=== PATIENT | male | born 1955 | race Two or more races ===

== ENCOUNTER 2023-02-08 04:08 | Inpatient (IN) | payer MEDICARE, OTHER ==
[~2023-02-08] VITALS: Ht 175.3 cm; Wt 99.0 kg
[2023-02-08 04:40] LABS: Basophils # (auto) 0.1 10 ^3/uL (0-0.2); Basophils % (auto) 1.1 % (0.0-2.0); Eosinophils # (auto) 0 10 ^3/uL (0-0.8); Eosinophils % (auto) 0.6 % (0.0-7.0); Hematocrit 46.2 % (41.0-53.0); Hemoglobin 15.6 g/dL (13.5-17.5); Lymphocytes # (auto) 1.2 10 ^3/uL (0.4-5.4); Lymphocytes % (auto) 16.1 % (10.0-50.0); Mean Corpuscular Hemoglobin 29.5 pg (28.0-32.0); Mean Corpuscular Hgb Conc. 33.8 g/dL (32.0-36.0); Mean Corpuscular Volume 87.2 fL (80.0-100.0); Monocytes # (auto) 0.2 10 ^3/uL (0-1.3); Monocytes % (auto) 3.1 % (0.0-12.0); Neutrophils # (auto) 5.9 10 ^3/uL (1.6-8.6); Neutrophils % (auto) 79.1 % (37.0-80.0); Nucleated Red Blood Cells % 0.1 %; Red Cell Distribution Width 13.7 % (11.8-14.3); White Blood Cell 7.5 10^3/uL (4.4-10.8)
[2023-02-08 04:59] LABS: Albumin 3.6 g/dL (3.4-5.0); Magnesium 2.7 mg/dL (1.6-2.6); Potassium 4.2 mmol/L (3.5-5.1)
[2023-02-08 05:03] LABS: BUN/Creatinine Ratio 13.9 (10.0-20.0); Bilirubin, Total 0.6 mg/dL (0.2-1.0); Calcium 8.7 mg/dL (8.5-10.1)
[2023-02-08 07:20] VITALS: PULSE 70; RESP 14; O2SAT 98
[2023-02-08] MEDS ORDERED: CLOPIDOGREL BISULFATE 75 MG TAB PO ONE (08:45)
[2023-02-08] MEDS ORDERED: ACETAMINOPHEN 325 MG TAB PO PRN (10:45)
[2023-02-08] MEDS ORDERED: NITROGLYCERIN 0.4 MG SL TAB SL PRN (10:45)
[2023-02-08] MEDS ORDERED: MORPHINE SULFATE INJ 2 MG/ml SYRG IV PRN (10:45)
[2023-02-08] MEDS ORDERED: DEXTROSE (50%) 50ML SYRG IV PRN (11:00)
[2023-02-08] MEDS ORDERED: ONDANSETRON HCL 4 MG/2 ML VIAL IV ONE (11:15)
[2023-02-08] MEDS: InsuLIN REG 1unit/0.01ml Soln (100units/ml) SC SCH ×3 (12:06→22:00)
[2023-02-08] MEDS: ACCU-CHEK COMFORT CURVE STRIP VI SCH ×3 (12:06→22:14)
[2023-02-08 12:47] LABS: INR 1.1 (0.9-1.15); Partial Thromboplastin Time 27.4 SEC (24.5-34.5)
[2023-02-08] MEDS: TAMSULOSIN HYDROCHLORIDE 0.4 MG CAP PO SCH (17:31)
[2023-02-08 17:53] VITALS: PULSE 68; RESP 18; O2SAT 97
[2023-02-08] MEDS: CLOPIDOGREL BISULFATE 75 MG TAB PO SCH (19:15)
[2023-02-08 19:42] VITALS: PULSE 78; RESP 19; O2SAT 94
[2023-02-08 20:00] LABS: Cholesterol 197 mg/dL (< 200)
[2023-02-08 20:03] LABS: HDL Cholesterol 70 mg/dL (40-59); LDL Cholesterol 118 mg/dL (< 100); Triglycerides 88 mg/dL (< 150)
[2023-02-08] MEDS: ATORVASTATIN 20 MG TAB PO SCH (22:21)
[2023-02-08] MEDS: CARVEDILOL 3.125 MG TAB PO SCH (22:22)
[2023-02-09] VITALS (17 sets, daily range): BP systolic 139–159; BP diastolic 69–85; PULSE 58–77; RESP 11–23; TEMP 97.7–100; O2SAT 91–96
[2023-02-09] MEDS: MECLIZINE HCL 25 MG TAB PO PRN ×2 (01:26→17:09)
[2023-02-09 04:57] LABS: Basophils # (auto) 0.1 10 ^3/uL (0-0.2); Basophils % (auto) 0.6 % (0.0-2.0); Eosinophils # (auto) 0.2 10 ^3/uL (0-0.8); Eosinophils % (auto) 1.6 % (0.0-7.0); Hematocrit 44.1 % (41.0-53.0); Hemoglobin 14.7 g/dL (13.5-17.5); Lymphocytes # (auto) 1.9 10 ^3/uL (0.4-5.4); Lymphocytes % (auto) 20.7 % (10.0-50.0); Mean Corpuscular Hemoglobin 29.1 pg (28.0-32.0); Mean Corpuscular Hgb Conc. 33.2 g/dL (32.0-36.0); Mean Corpuscular Volume 87.5 fL (80.0-100.0); Monocytes # (auto) 0.8 10 ^3/uL (0-1.3); Neutrophils # (auto) 6.4 10 ^3/uL (1.6-8.6); Neutrophils % (auto) 69.1 % (37.0-80.0); Red Blood Cells 5.04 10^6/uL (4.5-5.90); Red Cell Distribution Width 13.8 % (11.8-14.3); White Blood Cell 9.3 10^3/uL (4.4-10.8)
[2023-02-09 05:16] LABS: Calcium 8.4 mg/dL (8.5-10.1)
[2023-02-09 05:21] LABS: BUN/Creatinine Ratio 14.5 (10.0-20.0); Bilirubin, Total 0.6 mg/dL (0.2-1.0); Total Protein 6.3 g/dL (6.4-8.2)
[2023-02-09] MEDS: ACCU-CHEK COMFORT CURVE STRIP VI SCH ×4 (07:00→21:12)
[2023-02-09] MEDS: InsuLIN REG 1unit/0.01ml Soln (100units/ml) SC SCH ×4 (07:00→21:22)
[2023-02-09] MEDS ORDERED: CLOPIDOGREL BISULFATE 75 MG TAB PO SCH (10:00)
[2023-02-09] MEDS: FAMOTIDINE 20 MG TAB PO SCH (10:14)
[2023-02-09] MEDS: ASPirin-EC 81 mg tab PO SCH (10:14)
[2023-02-09] MEDS: CLOPIDOGREL BISULFATE 75 MG TAB PO SCH (10:14)
[2023-02-09] MEDS: CARVEDILOL 3.125 MG TAB PO SCH ×2 (10:15→21:12)
[2023-02-09] MEDS: TAMSULOSIN HYDROCHLORIDE 0.4 MG CAP PO SCH (17:45)
[2023-02-09 18:33] LABS: Urine Bacteria NONE SEEN /hpf (None Seen); Urine Blood Negative /uL (Negative); Urine Specific Gravity 1.014 (1.001-1.035); Urine WBC <1 /hpf (0 - 3)
[2023-02-09 20:25] LABS: Sodium Urine 58 mmol/L (40-220)
[2023-02-09 20:31] LABS: Alcohol, Urine < 3.0 mg/dL (0-10); Amphetamine Screen, Urine NEGATIVE (NEGATIVE); Barbiturate Scree,Urine NEGATIVE (NEGATIVE); Benzodiazephine Screen, Urine NEGATIVE (NEGATIVE); Cannabinoid Screen, Urine NEGATIVE (NEGATIVE); Cocaine Screen, Urine NEGATIVE (NEGATIVE); Creatinine, Urine 102 mg/dL (30.0-125.0); Opiate Scree,Urine NEGATIVE (NEGATIVE); Phencyclidine Screen, Urine NEGATIVE (NEGATIVE); Protein, Urine 17.7 mg/dL (0.0-11.9)
[2023-02-09] MEDS ORDERED: SODIUM BICARBONATE 8.4 % INJ 50ML VIAL IV ONE ×2 (20:41→20:49)
[2023-02-09] MEDS: SODIUM BICARBONATE 50ML VIAL 75 ML in D5W 5% 1,000 ML IV SCH (21:11)
[2023-02-09] MEDS: ATORVASTATIN 20 MG TAB PO SCH (21:11)
[2023-02-10] VITALS (30 sets, daily range): BP systolic 132–197; BP diastolic 53–101; PULSE 66–84; RESP 14–27; TEMP 97.8–98.9; O2SAT 94–98
[2023-02-10] MEDS: SODIUM BICARBONATE 50ML VIAL 75 ML in D5W 5% 1,000 ML IV SCH ×2 (04:45→08:21)
[2023-02-10] MEDS: InsuLIN REG 1unit/0.01ml Soln (100units/ml) SC SCH ×2 (06:40→11:30)
[2023-02-10] MEDS: ACCU-CHEK COMFORT CURVE STRIP VI SCH ×2 (06:40→11:51)
[2023-02-10] MEDS ORDERED: hydrALAZINE HCL 20 MG/ML VL IV ONE (06:45)
[2023-02-10 07:27] LABS: Basophils # (auto) 0.1 10 ^3/uL (0-0.2); Basophils % (auto) 1.1 % (0.0-2.0); Eosinophils # (auto) 0.2 10 ^3/uL (0-0.8); Hemoglobin 15.5 g/dL (13.5-17.5); Lymphocytes # (auto) 1.9 10 ^3/uL (0.4-5.4); Lymphocytes % (auto) 23.2 % (10.0-50.0); Mean Corpuscular Hemoglobin 29.3 pg (28.0-32.0); Mean Corpuscular Hgb Conc. 33.6 g/dL (32.0-36.0); Mean Corpuscular Volume 87.3 fL (80.0-100.0); Monocytes # (auto) 0.7 10 ^3/uL (0-1.3); Monocytes % (auto) 8.1 % (0.0-12.0); Neutrophils # (auto) 5.3 10 ^3/uL (1.6-8.6); Neutrophils % (auto) 64.6 % (37.0-80.0); Nucleated Red Blood Cells % 0.1 %; Red Blood Cells 5.27 10^6/uL (4.5-5.90); Red Cell Distribution Width 13.9 % (11.8-14.3); White Blood Cell 8.3 10^3/uL (4.4-10.8)
[2023-02-10 07:48] LABS: Potassium 4.4 mmol/L (3.5-5.1)
[2023-02-10] MEDS: CARVEDILOL 3.125 MG TAB PO SCH ×2 (08:13→22:00)
[2023-02-10] MEDS: ASPirin-EC 81 mg tab PO SCH (08:13)
[2023-02-10] MEDS: CLOPIDOGREL BISULFATE 75 MG TAB PO SCH (08:14)
[2023-02-10] MEDS: FAMOTIDINE 20 MG TAB PO SCH (08:14)
[2023-02-10] MEDS ORDERED: CARV6.25 PO (08:21)
[2023-02-10] MEDS ORDERED: CLON0.1T PO (08:22)
[2023-02-10] MEDS: MECLIZINE HCL 25 MG TAB PO PRN ×2 (09:37→21:57)
[2023-02-10] MEDS: TAMSULOSIN HYDROCHLORIDE 0.4 MG CAP PO SCH (18:38)
[2023-02-10] MEDS: cloNIDine HCL 0.1 MG TAB PO PRN (18:49)
[2023-02-10] MEDS: ATORVASTATIN 20 MG TAB PO SCH (21:57)
[2023-02-11] VITALS (20 sets, daily range): BP systolic 131–160; BP diastolic 59–86; PULSE 61–85; RESP 13–23; TEMP 98.8–99.3; O2SAT 92–97
[2023-02-11] MEDS: SODIUM BICARBONATE 50ML VIAL 75 ML in D5W 5% 1,000 ML IV SCH (05:06)
[2023-02-11 06:44] LABS: Basophils # (auto) 0.1 10 ^3/uL (0-0.2); Basophils % (auto) 0.8 % (0.0-2.0); Eosinophils # (auto) 0.3 10 ^3/uL (0-0.8); Eosinophils % (auto) 3.9 % (0.0-7.0); Hematocrit 44.3 % (41.0-53.0); Hemoglobin 14.7 g/dL (13.5-17.5); Lymphocytes # (auto) 1.8 10 ^3/uL (0.4-5.4); Lymphocytes % (auto) 23.6 % (10.0-50.0); Mean Corpuscular Hemoglobin 29.1 pg (28.0-32.0); Mean Corpuscular Hgb Conc. 33.3 g/dL (32.0-36.0); Mean Corpuscular Volume 87.5 fL (80.0-100.0); Monocytes # (auto) 0.7 10 ^3/uL (0-1.3); Monocytes % (auto) 9.8 % (0.0-12.0); Neutrophils # (auto) 4.6 10 ^3/uL (1.6-8.6); Neutrophils % (auto) 61.9 % (37.0-80.0); Nucleated Red Blood Cells % 0.1 %; Red Blood Cells 5.06 10^6/uL (4.5-5.90); Red Cell Distribution Width 13.5 % (11.8-14.3); White Blood Cell 7.5 10^3/uL (4.4-10.8)
[2023-02-11 06:54] LABS: BUN/Creatinine Ratio 17.2 (10.0-20.0); Calcium 8.1 mg/dL (8.5-10.1); Potassium 4.5 mmol/L (3.5-5.1)
[2023-02-11] MEDS: FAMOTIDINE 20 MG TAB PO SCH (08:33)
[2023-02-11] MEDS: ASPirin-EC 81 mg tab PO SCH (08:33)
[2023-02-11] MEDS: CLOPIDOGREL BISULFATE 75 MG TAB PO SCH (08:33)
[2023-02-11] MEDS: CARVEDILOL 3.125 MG TAB PO SCH ×2 (09:10→21:59)
[2023-02-11] MEDS: MECLIZINE HCL 25 MG TAB PO PRN ×2 (09:49→15:18)
[2023-02-11] MEDS ORDERED: ARTIFICIAL TEARS 15ml EACHEYE PRN (15:45)
[2023-02-11] MEDS: TAMSULOSIN HYDROCHLORIDE 0.4 MG CAP PO SCH (17:07)
[2023-02-11] MEDS: ATORVASTATIN 20 MG TAB PO SCH (21:58)
[2023-02-11] MEDS: cloNIDine HCL 0.1 MG TAB PO PRN (22:00)
[2023-02-12 05:00] VITALS: BP 115/82; PULSE 61; RESP 18; TEMP 98.1; O2SAT 98
[2023-02-12 07:03] LABS: Potassium 4.2 mmol/L (3.5-5.1)
[2023-02-12 07:56] VITALS: PULSE 79
[2023-02-12 08:00] VITALS: PULSE 62
[2023-02-12 09:00] VITALS: BP 149/92; PULSE 70; RESP 20; TEMP 98; O2SAT 96
[2023-02-12] MEDS: FAMOTIDINE 20 MG TAB PO SCH (10:10)
[2023-02-12] MEDS: ASPirin-EC 81 mg tab PO SCH (10:10)
[2023-02-12] MEDS: CLOPIDOGREL BISULFATE 75 MG TAB PO SCH (10:10)
[2023-02-12] MEDS: CARVEDILOL 3.125 MG TAB PO SCH (10:11)
[2023-02-12] MEDS: MECLIZINE HCL 25 MG TAB PO PRN (10:17)
[2023-02-12 13:00] VITALS: BP 142/70; PULSE 65; RESP 20; TEMP 98; O2SAT 96
== END 2023-02-12 15:19 | DRG 64 ==
LOC: ER 04:08 → EDBD 10:52 → TELE 10:52 → DOU IN ICU 23:45 → TELE-WESTW 02-11 12:07
PROVIDERS: ADMIT Internal Medicine; ATTEND Student in an Organized Health Care Education/Training Program
DX: I63.9 Cerebral infarction, unspecified (principal); N17.0 Acute kidney failure with tubular necrosis; I16.1 Hypertensive emergency; N13.30 Unspecified hydronephrosis; E66.01 Morbid (severe) obesity due to excess calories; E78.5 Hyperlipidemia, unspecified; H53.2 Diplopia; N40.1 Benign prostatic hyperplasia with lower urinary tract symptoms; R33.8 Other retention of urine; Z20.822 Contact with and (suspected) exposure to COVID-19; I12.9 Hypertensive chronic kidney disease with stage 1 through stage 4 chronic kidney disease, or unspecified chronic kidney disease; N18.30 Chronic kidney disease, stage 3 unspecified; Z86.73 Personal history of transient ischemic attack (TIA), and cerebral infarction without residual deficits; Z90.79 Acquired absence of other genital organ(s); Z68.32 Body mass index [BMI] 32.0-32.9, adult; Z82.49 Family history of ischemic heart disease and other diseases of the circulatory system; Z82.0 Family history of epilepsy and other diseases of the nervous system; Z79.82 Long term (current) use of aspirin
CPT/HCPCS: 36415; 70450; 70545; 70547; 70551; 71045; 76775; 80048; 80053; 80061; 80307; 81001; 82570; 82607; 82962; 83036; 83735; 83880; 83935; 84154; 84156; 84300; 84443; 84484; 85025; 85610; 85730; 87081; 87426; 93005; 93306; 93886; 96374; 97110; 97116; 97163; 97530; 99291; G0378; J2405

== ENCOUNTER 2023-03-21 22:50 | Emergency (ER) | payer MEDICARE, OTHER ==
[~2023-03-21] VITALS: Ht 175.3 cm; Wt 97.3 kg
[~2023-03-21 22:50] MED LIST: CARV6.25 PO; CLON0.1T PO
[2023-03-21 23:13] VITALS: BP 143/64; PULSE 75; RESP 18; TEMP 98.6; O2SAT 97
[2023-03-22] MEDS ORDERED: OFL50TS OT (00:13)
[2023-03-22] MEDS ORDERED: AUG875T PO (00:13)
[2023-03-22] MEDS ORDERED: AMOXICILLIN/CLAVUL 875 MG TAB PO ONE (00:15)
== END 2023-03-22 02:05 | disposition home or self-care (01) ==
LOC: ER 22:50
DX: H72.92 Unspecified perforation of tympanic membrane, left ear (principal); I10 Essential (primary) hypertension; E78.5 Hyperlipidemia, unspecified

== ENCOUNTER 2023-04-21 06:45 | Emergency (ER) | payer OTHER ==
[~2023-04-21] VITALS: Ht 175.3 cm; Wt 97.7 kg
[~2023-04-21 06:45] MED LIST changes: +AUG875T PO; +OFL50TS OT
[2023-04-21 07:32] VITALS: BP 187/87; PULSE 70; RESP 17; TEMP 98; O2SAT 99
[2023-04-21] MEDS ORDERED: LIDOCAINE HCL 2% TOP JELLY 5ML TOP ONE (07:45)
[2023-04-21] MEDS ORDERED: LIDOCAINE 2% JELLY 11ml (GLYDO) UR ONE (08:15)
[2023-04-21] MEDS ORDERED: BACDST PO (08:50)
[2023-04-21] MEDS ORDERED: cefTRIAXone SOD 1,000 MG VL IM ONE ×2 (09:00)
[2023-04-21 09:08] LABS: Urine Bacteria FEW /hpf (None Seen); Urine Blood 3+ /uL (Negative); Urine Budding Yeast LOADED /hpf (None Seen); Urine Clarity CLOUDY (Clear); Urine Color Yellow (Yellow); Urine Protein, UAD 1+ (Negative); Urine Specific Gravity 1.019 (1.001-1.035); Urine Urobilinogen Normal (Negative); Urine WBC 732 /hpf (0 - 3); Urine pH 7.5 (5.0-8.0)
== END 2023-04-21 08:59 | disposition home or self-care (01) ==
LOC: ER 06:45
DX: N39.0 Urinary tract infection, site not specified (principal); R33.9 Retention of urine, unspecified; I10 Essential (primary) hypertension; Z46.6 Encounter for fitting and adjustment of urinary device; Z79.899 Other long term (current) drug therapy
CPT/HCPCS: 51702; 81001; 96372; 99284; J0696

== ENCOUNTER 2023-05-06 17:10 | Emergency (ER) | payer OTHER ==
[~2023-05-06] VITALS: Ht 175.3 cm; Wt 97.6 kg
[~2023-05-06 17:10] MED LIST changes: +BACDST PO
[2023-05-07 01:28] VITALS: BP 130/73; PULSE 69; RESP 14; TEMP 98.5; O2SAT 96
== END 2023-05-06 23:32 | disposition home or self-care (01) ==
LOC: ER 17:10
DX: T83.018A Breakdown (mechanical) of other urinary catheter, initial encounter (principal); R33.9 Retention of urine, unspecified; I10 Essential (primary) hypertension; Z79.899 Other long term (current) drug therapy
CPT/HCPCS: 51702; 81002

== ENCOUNTER 2023-06-05 14:49 | Emergency (ER) | payer MEDICAID ==
[~2023-06-05] VITALS: Ht 177.8 cm; Wt 94.9 kg
[2023-06-05 18:49] LABS: Urine Bacteria MOD /hpf (None Seen); Urine Blood 3+ /uL (Negative); Urine Clarity CLOUDY (Clear); Urine Color Yellow (Yellow); Urine Protein, UAD 2+ (Negative); Urine Urobilinogen Normal (Negative); Urine WBC 6049 /hpf (0 - 3); Urine WBC Clumps PRESENT /hpf (None Seen)
[2023-06-05 18:51] LABS: Urine Specific Gravity 1.015 (1.001-1.035)
[2023-06-05] MEDS ORDERED: BACDST PO (19:13)
[2023-06-05] MEDS ORDERED: cefTRIAXone SOD 1,000 MG VL IM ONE (19:15)
[2023-06-05] MEDS ORDERED: LET TOPICAL SOLN 5 ML TOP ONE (20:15)
[2023-06-05 21:05] VITALS: BP 137/65; PULSE 87; RESP 18; TEMP 97.8; O2SAT 96
== END 2023-06-05 21:07 | disposition home or self-care (01) ==
LOC: ER 14:49
DX: N39.0 Urinary tract infection, site not specified (principal); N40.1 Benign prostatic hyperplasia with lower urinary tract symptoms; I10 Essential (primary) hypertension; Z86.73 Personal history of transient ischemic attack (TIA), and cerebral infarction without residual deficits; Z46.6 Encounter for fitting and adjustment of urinary device
CPT/HCPCS: 51702; 81001; 96372; 99284; J0696; J3490